=== PATIENT | female | born 1960 | race Caucasian/White ===

== ENCOUNTER 2016-12-09 23:19 | Emergency (ER) | payer MEDICARE, MEDICAID ==
--- NOTE | 2016-12-10 01:01 | EDM.PDOCBH ---
ED HPI GENERAL MEDICAL PROBLEM - General Chief Complaint: Behavioral/Psych Stated Complaint: DEPRESSED Time Seen by Provider: 12/09/16 23:20 Source of Information: Reports: Patient, EMS, RN History Limitations: Reports: No Limitations - History of Present Illness INITIAL COMMENTS - FREE TEXT/NARRATIVE: The patient told nursing staff at the [facility] she was feeling suicidal. Nursing staff then contacted Dr. Ashley Herndon who was career based intervention coordinator for further advice. Dr Herndon suggested the patient be evaluated in the ER. Upon further discussion with the patient, she is unhappy with her current living situation as she feels like a, "Prisoner." She does not like the [facility] because she is in a locked unit. She patient states she feels as though her life is a waste living at the [facility] and she would rather be . The patient stated that she would eat hearing aid batteries or hang herself with sheets. She tried to commit suicide by taking pills once as a teenager and again as a young adult. The patient has a long his of mental illness. She states that she told the nurse at the [facility] she was suicidal so she could get moved to another facility where she would have more freedom. We discussed how this behavior is actually causing healthcare professional to believe she should be in a locked facility because of complaints like this and is counter productive to the patient's goals for more freedom. The patient continued to argue with me about this not being the case. The patient states that everyone is out to get her which is how she ended up in this position in the first place. The patient refused to allow me to examine her. I called the patient's Guardian, Matty, at [facility]. I discussed the patient's living concerns with her. She assured me that they are currently trying to get the patient off of the locked unit, but are waiting for a room in a less restrictive environment so the patient may come and go as she pleases. The patient is aware of this but is unwilling to wait. The patient's guardian stated that the patient is very manipulative and is trying to get what she wants right now instead of waiting for a room to open up. She suggested we send the patient back to [facility]. I discussed this with the patient, but she refuses to believe any of the above concerning the guardian's efforts. I called the nurse, Andreia, at the [facility] and informed her of the methods which the patient told me she had planned to use to commit suicide. The nurse stated she would remove these items from the patient's vicinity so the patient would not have access to these items. The patient agreed to go back to the [facility] and be patient waiting for the room outside of the special care unit to open up instead of threatening or attempting suicide. Onset: Today, Sudden Onset Date: 12/09/16 Onset Time: 23:15 Duration: Recurring - Related Data Allergies Allergy/AdvReac Type Severity Reaction Status Date / Time amoxicillin [From Prevpac] Allergy Other Verified 12/09/16 23:32 benztropine Allergy Other Verified 12/09/16 23:32 bupropion Allergy Other Verified 12/09/16 23:32 chlorpromazine Allergy Other Verified 12/09/16 23:32 clarithromycin [From Prevpac] Allergy Other Verified 12/09/16 23:32 clozapine Allergy Other Verified 12/09/16 23:32 fluoxetine Allergy Other Verified 12/09/16 23:32 gentamicin Allergy Other Verified 12/09/16 23:32 lansoprazole [From Prevpac] Allergy Other Verified 12/09/16 23:32 lidocaine Allergy Other Verified 12/09/16 23:32 lithium Allergy Other Verified 12/09/16 23:32 olanzapine [From Zyprexa] Allergy Other Verified 12/09/16 23:32 oxcarbazepine Allergy Other Verified 12/09/16 23:32 [From Trileptal] paliperidone [From Invega] Allergy Other Verified 12/09/16 23:32 thiothixene [From Navane] Allergy Other Verified 12/09/16 23:32 ziprasidone Allergy Other Verified 12/09/16 23:32 neodecadron Allergy Other Uncoded 12/09/16 23:32 Home Meds: Home Meds Acetaminophen with Codeine [Tylenol with Codeine #3 Tablet] 1 each PO BEDTIME PRN 12/09/16 [History] Ascorbic Acid 500 mg PO DAILY 12/09/16 [History] Aspirin 81 mg PO DAILY 12/09/16 [History] Benzoyl Peroxide [Panoxyl-4] 170.1 gm TP ASDIRECTED 12/09/16 [History] Celecoxib [CeleBREX] 100 mg PO BID 12/09/16 [History] Cholecalciferol (Vitamin D3) [Vitamin D3] 1,000 unit PO DAILY 12/09/16 [History] Metoprolol Succinate [Toprol XL] 50 mg PO BEDTIME 12/09/16 [History] Multivitamin [Daily Efren] 1 each PO DAILY 12/09/16 [History] Nicotine Polacrilex [Nicorette] 2 mg BC Q2H PRN 12/09/16 [History] Pantoprazole Sodium 40 mg PO DAILY 12/09/16 [History] Pyridoxine HCl 25 mg PO DAILY 12/09/16 [History] QUEtiapine Fumarate [Seroquel Xr] 400 mg PO DAILY 12/09/16 [History] Talc/Cellulos/Chloroxy/Aldioxa [Zeasorb Powder] 71 gm TP DAILY 12/09/16 [History ] Vitamin B Complex 1 each PO DAILY 12/09/16 [History] Past Medical History HEENT History: Reports: Cataract, Other (See Below) Other HEENT History: tinnitus Cardiovascular History: Reports: Afib, Hypertension Gastrointestinal History: Reports: Chronic Constipation, GERD Musculoskeletal History: Reports: Osteoarthritis, Other (See Below) Other Musculoskeletal History: spondylosis Psychiatric History: Reports: Bipolar, Other (See Below) Other Psychiatric History: unspecified mood (affective) disorder, schizoaffective disorder Social & Family History - Tobacco Use Smoking Status *Q: Unknown Ever Smoked ED ROS GENERAL - Review of Systems Review Of Systems: ROS reveals no pertinent complaints other than HPI. ED EXAM, BEHAVIORAL HEALTH - Physical Exam Exam: See Below Exam Limited By: Uncooperative General Appearance: Alert, WD/WN, No Apparent Distress Head: Atraumatic, Normocephalic Neurological: Alert, Oriented x 3 Psychiatric: Alert, Oriented, Depressed Mood, Agitated, Uncooperative, Suicidal Thoughts, Paranoid Thoughts Skin Exam: Warm, Dry, Intact, Normal color, No rash COURSE, BEHAVIORAL HEALTH COMP - Course Vital Signs: Last Vital Signs Temp 35.5 C 12/09/16 23:20 Pulse 76 12/09/16 23:20 Resp 18 12/09/16 23:20 BP 139/70 12/09/16 23:20 Pulse Ox 96 12/09/16 23:20 Departure - Departure Time of Disposition: 12:35 (back to [facility]) Disposition: DC/Tfer to [facility] Condition: Good Clinical Impression: Depressive disorder - Discharge Information Referrals: PCPTheo [Primary Care Provider] - ED Communication - ED Communication Date/Time Date: 12/10/16 (I spoke with Andreia the nurse at [facility] to notify her of the patient's plans for suicide.) Time Called: 12:20 - Discussed Case With (1) Discussed Case With (1): Pt's POA/Guardian (Matty and I spoke concerning the patient's feelings about her current living conditions) - Discussed Case With (2) Discussed Case With (2): Admitting Provider Person/s Notified (3): Ashley Herndon (She is in agreement to send the patient back to the care center.) - Assessment/Plan Assessment:: Depression Plan: Patient to return to locked nursing unit at the [facility] with suicide precautions. Remove bedsheets and restrict access to hearing aid batteries.
== END 2016-12-10 00:35 ==
LOC: VM.ED 23:19
DX: F32.9 Major depressive disorder, single episode, unspecified (principal); I10 Essential (primary) hypertension; I48.91 Unspecified atrial fibrillation; K21.9 Gastro-esophageal reflux disease without esophagitis; M19.90 Unspecified osteoarthritis, unspecified site; Z79.899 Other long term (current) drug therapy; Z79.82 Long term (current) use of aspirin; Z88.8 Allergy status to other drugs, medicaments and biological substances; Z88.1 Allergy status to other antibiotic agents; Z88.6 Allergy status to analgesic agent
CPT/HCPCS: 99284; 99284-GF-25

== ENCOUNTER 2020-06-30 15:05 | Emergency (ER) | payer MEDICARE, MEDICAID ==
[2020-06-30] MEDS ORDERED: Sodium Chloride 0.9% 10 ML Syringe FLUSH PRN (15:47)
--- NOTE | 2020-06-30 15:55 | EDM.PDOC ---
ED HPI GENERAL MEDICAL PROBLEM - General Chief Complaint: Cardiovascular Problem Stated Complaint: HEART PALPITATIONS Time Seen by Provider: 06/30/20 15:32 Source of Information: Reports: Patient, [facility] Records - History of Present Illness INITIAL COMMENTS - FREE TEXT/NARRATIVE: Iris is a 60 y/o female was sent from the [facility] after she was reported to have had heart palpitations and an increased heart rate. Apparently this has been going on for about a month now and happens intermittently. The patient wears a digital watch that tracks her heart rate and then sends the data to an iPad and she has been looking at the data and noting that several times a day her heart rate will be in the 130s. It is mostly between 70-100. The data on her iPas does not appear that the heart rate is sustained for longer than a couple minutes and it does not really differentiate the amount of exercise she is doing. She has been diagnosed with A Fib in the past and is currently on Toprol ER 50mg qd. The patient does report some increased dizziness and SOB. She denies any chest pain. No nausea or vomiting. She does also report that hse does have a history of her psych meds causing low sodium levels and she is concerned this may be the case. Did have some dysuria yesterday. The prison nurse did talk to Dr Jonna Huffman and was advised to send her to the ER for an EKG and further evaluation. Treatments SPAR CAP BEVELER: Reports: EKG - Related Data Allergies Allergy/AdvReac Type Severity Reaction Status Date / Time amoxicillin [From Prevpac] Allergy Other Verified 12/09/16 23:32 benztropine Allergy Other Verified 12/09/16 23:32 bupropion Allergy Other Verified 12/09/16 23:32 chlorpromazine Allergy Other Verified 12/09/16 23:32 clarithromycin [From Prevpac] Allergy Other Verified 12/09/16 23:32 clozapine Allergy Other Verified 12/09/16 23:32 fluoxetine Allergy Other Verified 12/09/16 23:32 gentamicin Allergy Other Verified 12/09/16 23:32 lansoprazole [From Prevpac] Allergy Other Verified 12/09/16 23:32 lidocaine Allergy Other Verified 12/09/16 23:32 lithium Allergy Other Verified 12/09/16 23:32 olanzapine [From Zyprexa] Allergy Other Verified 12/09/16 23:32 oxcarbazepine Allergy Other Verified 12/09/16 23:32 [From Trileptal] paliperidone [From Invega] Allergy Other Verified 12/09/16 23:32 thiothixene [From Navane] Allergy Other Verified 12/09/16 23:32 ziprasidone Allergy Other Verified 12/09/16 23:32 neodecadron Allergy Other Uncoded 12/09/16 23:32 Home Meds: Home Meds Acetaminophen with Codeine [Tylenol with Codeine #3 Tablet] 1 each PO BEDTIME PRN 12/09/16 [History] Ascorbic Acid 500 mg PO DAILY 12/09/16 [History] Aspirin 81 mg PO DAILY 12/09/16 [History] Benzoyl Peroxide [Panoxyl-4] 170.1 gm TP ASDIRECTED 12/09/16 [History] Celecoxib [CeleBREX] 100 mg PO BID 12/09/16 [History] Cholecalciferol (Vitamin D3) [Vitamin D3] 1,000 unit PO DAILY 12/09/16 [History] Metoprolol Succinate [Toprol XL] 50 mg PO BEDTIME 12/09/16 [History] Multivitamin [Daily Efren] 1 each PO DAILY 12/09/16 [History] Nicotine Polacrilex [Nicorette] 2 mg BC Q2H PRN 12/09/16 [History] Pantoprazole Sodium 40 mg PO DAILY 12/09/16 [History] Pyridoxine HCl (Vitamin B6) [Pyridoxine HCl] 25 mg PO DAILY 12/09/16 [History] QUEtiapine Fumarate [Seroquel Xr] 400 mg PO DAILY 12/09/16 [History] Talc/Cellulos/Chloroxy/Aldioxa [Zeasorb Powder] 71 gm TP DAILY 12/09/16 [History] Vitamin B Complex 1 each PO DAILY 12/09/16 [History] Nitrofurantoin Monohyd/M-Cryst [Macrobid 100 mg Capsule] 100 mg PO BID 6 Days #13 capsule 06/30/20 [Rx] Past Medical History HEENT History: Reports: Cataract, Other (See Below) Other HEENT History: tinnitus Cardiovascular History: Reports: Afib, Hypertension Gastrointestinal History: Reports: Chronic Constipation, GERD Musculoskeletal History: Reports: Osteoarthritis, Other (See Below) Other Musculoskeletal History: spondylosis Psychiatric History: Reports: Bipolar, Other (See Below) Other Psychiatric History: unspecified mood (affective) disorder, schizoaffective disorder ED ROS GENERAL - Review of Systems Review Of Systems: See Below Constitutional: Reports: No Symptoms HEENT: Reports: No Symptoms Respiratory: Reports: Shortness of Breath Cardiovascular: Reports: Palpitations Endocrine: Reports: No Symptoms GI/Abdominal: Reports: No Symptoms : Reports: Dysuria Musculoskeletal: Reports: No Symptoms Skin: Reports: No Symptoms Neurological: Reports: Dizziness Psychiatric: Reports: No Symptoms Hematologic/Lymphatic: Reports: No Symptoms Immunologic: Reports: No Symptoms ED EXAM, GENERAL - Physical Exam Exam: See Below Exam Limited By: No Limitations General Appearance: Alert, WD/WN (Obese adult female.), No Apparent Distress Eye Exam: Bilateral Eye: PERRL Ears: Hearing Grossly Normal Nose: Normal Inspection, Normal Mucosa Throat/Mouth: Normal Inspection, Normal Lips, Normal Voice Head: Atraumatic, Normocephalic Neck: Supple Respiratory/Chest: No Respiratory Distress, Lungs Clear, Chest Non-Tender Cardiovascular: Normal Peripheral Pulses, Regular Rate, Rhythm, No Murmur GI/Abdominal: Normal Bowel Sounds, Soft, Non-Tender, Other (Obese) (Female) Exam: Deferred Rectal (Female) Exam: Deferred Back Exam: Normal Inspection Extremities: Normal Inspection, No Pedal Edema, Normal Capillary Refill Neurological: Alert, Oriented, CN II-XII Intact Psychiatric: Normal Affect Skin Exam: Warm, Dry, Intact, Normal Color #1 Interpretation EKG Date: 06/30/20 Time: 15:16 Rhythm: NSR Rate (Beats/Min): 81 P-Wave: Present QRS: Normal ST-T: Normal QT: Normal Comparison: NA - No Prior EKG EKG Interpretation Comments: Normal EKG Study Course - Vital Signs Text/Narrative:: 1532 The patient was seen by the SENIOR CHEMICAL ENGINEER. Labs and EKG ordered. Vitals stable and assessment negative on arrival, no meds given at this time. 1630 EKG=NSR. Labs reviewed. CMP II=175, stable for pt, Cl=97, CO2=29, BUN=26, Rv Parts And Service Director=1.3, Xucbkih=786, GFR=42; TSH=3.898; Mg=1.8; Trop I=24; UA +nitrates, WBC=20-30, Bacteria=moderate, Ketones=trace, Urine Cx pending. Case reviewed with Dr Jonna Huffman by phone. Will treat patient for UTI with po meds. Discussed lengthy allergy list and will give her Macrobid despite GFR=42. Amoxicillin noted as allergy on hospital record but not NH record. Cx and Sens pending. Will advise to push oral fluids at prison. Sodium level stable for patient according to records in [place] chart. Dr Huffman will follow up with patient and repeat her labs at the prison in the next few weeks. Written discharge instructions were given to the patient for nursing staff at the [facility] and the patient left the ER in stable condition with EMS crew to return to [facility]. Last Recorded V/S: Last Vital Signs Temp 36.6 C 06/30/20 15:15 Pulse 89 06/30/20 16:33 Resp 18 06/30/20 16:33 BP 120/71 06/30/20 16:33 Pulse Ox 94 L 06/30/20 16:33 - Orders/Labs/Meds Orders: Active Orders 24 hr Category Date Time Status EKG Documentation Completion [RC] STAT Care 06/30/20 15:47 Active CULTURE URINE [RM] Stat Lab 06/30/20 16:14 Received Sodium Chloride 0.9% [Saline Flush] Med 06/30/20 15:47 Active 10 ml FLUSH ASDIRECTED PRN Saline Lock Insert [OM.PC] Stat Oth 06/30/20 15:47 Ordered Medication Orders Sodium Chloride (Sodium Chloride 0.9% 10 Ml Syringe) 10 ml FLUSH ASDIRECTED PRN PRN Reason: Keep Vein Open Labs: Laboratory Tests 06/30/20 06/30/20 06/30/20 Range/Units 15:25 15:25 15:25 WBC 3.7 L (4.0-10.0) x10^3/uL RBC 4.58 (4.00-5.50) x10^6/uL Hgb 14.7 (12.0-16.0) g/dL Hct 42.3 (33.0-47.0) % MCV 92.4 (78.0-93.0) fL MCH 32.1 H (26.0-32.0) pg MCHC 34.8 (32.0-36.0) g/dL RDW Coeff of Marcin 14.5 (10.0-15.0) % Plt Count 220 (130-400) x10^3/uL Neut % (Auto) 48.1 L (50.0-80.0) % Lymph % (Auto) 34.4 (25.0-50.0) % Ashley % (Auto) 13.1 H (2.0-11.0) % Eos % (Auto) 4.1 H (0.0-4.0) % Baso % (Auto) 0.3 (0.2-1.2) % PT 10.5 (9.9-12.5) SEC INR 0.9 L (2.0-3.5) APTT 25.2 L (25.6-32.8) SEC Sodium 133 L (136-145) mmol/L Potassium 3.9 (3.5-5.1) mmol/L Chloride 97 L (98-107) mmol/L Carbon Dioxide 29 (21-32) mmol/L Anion Gap 10.9 (5-15) mmol/L BUN 26 H (7-18) mg/dL Creatinine 1.3 H (0.55-1.02) mg/dL Est Cr Clr Drug Dosing 44.75 mL/min Estimated GFR (MDRD) 42 Glucose 152 H (74-106) mg/dL Calcium 8.7 (8.5-10.1) mg/dL Corrected Calcium 9.66 (8.5-10.1) mg/dL Magnesium 1.8 (1.8-2.4) mg/dL Total Bilirubin 0.3 (0.2-1.0) mg/dL AST 24 (15-37) U/L ALT 36 (14-59) U/L Alkaline Phosphatase 75 (46-116) U/L Troponin I High Sens 24 (<=51) ng/L Total Protein 6.9 (6.4-8.2) g/dL Albumin 2.8 L (3.4-5.0) g/dL Globulin 4.1 Albumin/Globulin Ratio 0.68 TSH, Ultra Sensitive 3.898 H (0.358-3.74) uIU/mL Urine Color (YELLOW) Urine Appearance (CLEAR) Urine pH (5.0-8.0) Ur Specific [place] Urine Protein (NEGATIVE) mg/dL Urine Glucose (UA) (NEGATIVE) mg/dL Urine Ketones (NEGATIVE) mg/dL Urine Occult Blood (NEGATIVE) Urine Nitrite (NEGATIVE) Urine Bilirubin (NEGATIVE) Urine Urobilinogen (0.2) EU/dL Ur Leukocyte Esterase (NEGATIVE) Urine RBC (NOT SEEN) /HPF Urine WBC (NOT SEEN) /HPF Ur Squamous Epith Cells (NOT SEEN) /HPF Urine Bacteria (NOT SEEN) /HPF Urine Mucus (NOT SEEN) /LPF 06/30/20 Range/Units 16:14 WBC (4.0-10.0) x10^3/uL RBC (4.00-5.50) x10^6/uL Hgb (12.0-16.0) g/dL Hct (33.0-47.0) % MCV (78.0-93.0) fL MCH (26.0-32.0) pg MCHC (32.0-36.0) g/dL RDW Coeff of Marcin (10.0-15.0) % Plt Count (130-400) x10^3/uL Neut % (Auto) (50.0-80.0) % Lymph % (Auto) (25.0-50.0) % Ashley % (Auto) (2.0-11.0) % Eos % (Auto) (0.0-4.0) % Baso % (Auto) (0.2-1.2) % PT (9.9-12.5) SEC INR (2.0-3.5) APTT (25.6-32.8) SEC Sodium (136-145) mmol/L Potassium (3.5-5.1) mmol/L Chloride (98-107) mmol/L Carbon Dioxide (21-32) mmol/L Anion Gap (5-15) mmol/L BUN (7-18) mg/dL Creatinine (0.55-1.02) mg/dL Est Cr Clr Drug Dosing mL/min Estimated GFR (MDRD) Glucose (74-106) mg/dL Calcium (8.5-10.1) mg/dL Corrected Calcium (8.5-10.1) mg/dL Magnesium (1.8-2.4) mg/dL Total Bilirubin (0.2-1.0) mg/dL AST (15-37) U/L ALT (14-59) U/L Alkaline Phosphatase (46-116) U/L Troponin I High Sens (<=51) ng/L Total Protein (6.4-8.2) g/dL Albumin (3.4-5.0) g/dL Globulin Albumin/Globulin Ratio TSH, Ultra Sensitive (0.358-3.74) uIU/mL Urine Color Yellow (YELLOW) Urine Appearance Cloudy H (CLEAR) Urine pH 5.5 (5.0-8.0) Ur Specific [place] 1.025 Urine Protein 100 H (NEGATIVE) mg/dL Urine Glucose (UA) Negative (NEGATIVE) mg/dL Urine Ketones Trace H (NEGATIVE) mg/dL Urine Occult Blood Moderate H (NEGATIVE) Urine Nitrite Positive H (NEGATIVE) Urine Bilirubin Negative (NEGATIVE) Urine Urobilinogen 0.2 (0.2) EU/dL Ur Leukocyte Esterase Small H (NEGATIVE) Urine RBC 30-40 H (NOT SEEN) /HPF Urine WBC 20-30 H (NOT SEEN) /HPF Ur Squamous Epith Cells Rare (NOT SEEN) /HPF Urine Bacteria Moderate H (NOT SEEN) /HPF Urine Mucus Few H (NOT SEEN) /LPF Meds: Medications Generic Name Dose Route Start Last Admin Trade Name Freq PRN Reason Stop Dose Admin Sodium Chloride 10 ml 06/30/20 15:47 Sodium Chloride 0.9% 10 Ml Syringe FLUSH ASDIRECTED PRN Keep Vein Open Departure - Departure Time of Disposition: 16:45 Disposition: DC[facility]fer to [facility] [facility] Reason for Transfer *Q: Other (Resident at [facility]) Clinical Impression: Palpitations, Renal insufficiency UTI (urinary tract infection) Qualifiers: Urinary tract infection type: site unspecified Hematuria presence: without hematuria Qualified Code(s): N39.0 - Urinary tract infection, site not specified Prescriptions: Nitrofurantoin Monohyd/M-Cryst [Macrobid 100 mg Capsule] 100 mg PO BID 6 Days #13 capsule Instructions: Urinary Tract Infection, Adult Forms: ED Department Discharge Additional Instructions: -Macrobid 100mg oral BID #13 (Rx) -Push oral fluids until UTI done -Dr Jonna Huffman will order follow up labs and see this patient for follow up on prison rounds. -Return to the ER for any concerns -Resume all meds and orders at prison Sepsis Event Note (ED) - Evaluation Sepsis Screening Result: No Definite Risk - Focused Exam Vital Signs: Vital Signs Temp Pulse Resp BP Pulse Ox 06/30/20 16:33 89 18 120/71 94 L 06/30/20 15:15 36.6 C 82 12 116/91 H 94 L - My Orders Last 24 Hours: My Active Orders 06/30/20 15:47 EKG Documentation Completion [RC] STAT Sodium Chloride 0.9% [Saline Flush] 10 ml FLUSH ASDIRECTED PRN Saline Lock Insert [OM.PC] Stat 06/30/20 16:14 CULTURE URINE [RM] Stat - Assessment/Plan Last 24 Hours: My Active Orders 06/30/20 15:47 EKG Documentation Completion [RC] STAT Sodium Chloride 0.9% [Saline Flush] 10 ml FLUSH ASDIRECTED PRN Saline Lock Insert [OM.PC] Stat 06/30/20 16:14 CULTURE URINE [RM] Stat Assessment:: 1)UTI 2)Palpitations 3)Renal Insufficiency Plan: -Macrobid 100mg oral BID #13 (Rx) -Push oral fluids until UTI done -Dr Jonna Huffman will order follow up labs and see this patient for follow up on prison rounds. -Return to the ER for any concerns -Resume all meds and orders at prison
[2020-06-30 16:18] LABS: PTT,PARTIAL THROMBOPLSTIN TIME 25.2 SEC (25.6-32.8)
[2020-06-30 16:26] LABS: ANION GAP 10.9 mmol/L (5-15)
[2020-06-30] MEDS ORDERED: Nitrofurantoin Monohydrate/Macrocrystalline 100 MG Cap PO STA (16:38)
== END 2020-06-30 17:04 ==
LOC: VM.ED 15:05
DX: R00.2 Palpitations (principal); N39.0 Urinary tract infection, site not specified; N28.9 Disorder of kidney and ureter, unspecified; I48.91 Unspecified atrial fibrillation; I10 Essential (primary) hypertension; K21.9 Gastro-esophageal reflux disease without esophagitis; M19.90 Unspecified osteoarthritis, unspecified site; E66.9 Obesity, unspecified; Z88.0 Allergy status to penicillin; Z88.8 Allergy status to other drugs, medicaments and biological substances; Z88.1 Allergy status to other antibiotic agents; Z79.82 Long term (current) use of aspirin; Z79.899 Other long term (current) drug therapy; Z88.4 Allergy status to anesthetic agent
CPT/HCPCS: 80053; 81001; 83735; 84443; 84484; 85025; 85610; 85730; 87086; 87088; 87186; 93005; 93010; 99284; 99285-25; A9270-GY

== ENCOUNTER 2024-03-18 14:23 | Inpatient (IN) | payer OTHER, MEDICAID ==
[2024-03-18] MEDS ORDERED: Sodium Chloride 0.9% 10 ML Syringe FLUSH PRN (14:37)
[2024-03-18 14:58] LABS: BASOPHILS PERCENT AUTO 0.3 % (0.2-1.2); EOSINOPHILS PERCENT AUTO 0.1 % (0.0-4.0); HEMATOCRIT 39.7 % (33.0-47.0); HEMOGLOBIN 13.7 g/dL (12.0-16.0); IMMATURE GRAN ABSOLUTE AUTO 0.02 x10^3/uL (0.00-0.07); LYMPHOCYTES PERCENT AUTO 3.7 % (25.0-50.0); MEAN CORPUSCULAR HEMOGLOBIN 31.6 pg (26.0-32.0); MEAN CORPUSCULAR HGB CONC 34.5 g/dL (32.0-36.0); MEAN CORPUSCULAR VOLUME 91.7 fL (78.0-93.0); MONOCYTES ABSOLUTE AUTO 0.6 x10^3/uL (0.0-0.8); MONOCYTES PERCENT AUTO 7.6 % (2.0-11.0); PLATELET COUNT,PLT 156 x10^3/uL (130-400); RED BLOOD CELL COUNT 4.33 x10^6/uL (4.00-5.50); WHITE BLOOD CELL COUNT,WBC 7.9 x10^3/uL (4.0-10.0)
[2024-03-18 15:08] LABS: LYMPHOCYTES ABSOLUTE AUTO 0.3 x10^3/uL (1.0-4.8)
[2024-03-18 15:18] LABS: A/G RATIO 0.44; ALANINE AMINOTRANSFERASE,ALT 97 U/L (14-59); ALBUMIN 2.1 g/dL (3.4-5.0); ALKALINE PHOSPHATASE 198 U/L (46-116); ASPARTATE AMNIOTRANSFERASE,AST 117 U/L (15-37); BILIRUBIN TOTAL 2.8 mg/dL (0.2-1.0); BLOOD UREA NITROGEN,BUN 11 mg/dL (7-18); CALCIUM 8.8 mg/dL (8.5-10.1); CARBON DIOXIDE,CO2 32 mmol/L (21-32); CHLORIDE,CL 96 mmol/L (98-107); CREATININE 1.3 mg/dL (0.55-1.02); GLUCOSE RANDOM 155 mg/dL (70-99); POTASSIUM,K 4.2 mmol/L (3.5-5.1); PROTEIN TOTAL,TP 6.9 g/dL (6.4-8.2); SODIUM,NA 135 mmol/L (136-145)
[2024-03-18 15:24] LABS: ANION GAP 11.2 mmol/L (5-15); ESTIMATED GFR 46 mL/min (>=60)
[2024-03-18 15:27] LABS: LACTIC ACID 2.2 mmol/L (0.4-2.0)
[2024-03-18 15:34] LABS: C-REACTIVE PROTEIN 33.05 mg/dL (<=0.50)
[2024-03-18] MEDS: Lactated Ringers 1,000 ML IV ONE (16:03)
[2024-03-18 16:04] LABS: APPEARANCE,URINE CLOUDY (CLEAR); BILIRUBIN,URINE LARGE (NEGATIVE); COLOR,URINE AMBER (YELLOW); GLUCOSE,URINE 100 mg/dL (NEGATIVE); KETONES,URINE 15 mg/dL (NEGATIVE); LEUKOCYTE ESTERASE,URINE SMALL (NEGATIVE); NITRITE,URINE POSITIVE (NEGATIVE); OCCULT BLOOD,URINE SMALL (NEGATIVE); PROTEIN,URINE >=300 mg/dL (NEGATIVE)
[2024-03-18 16:09] LABS: RBC,URINE NOT SEEN /HPF (NOT SEEN); RENAL EPITHELIAL CELLS,URINE FEW /HPF (NOT SEEN); SQUAMOUS EPITHELIAL CELLS,UR FEW /HPF (NOT SEEN)
[2024-03-18 16:12] LABS: BACTERIA,URINE MANY /HPF (NOT SEEN); HYALINE CASTS,URINE FEW; MUCUS,URINE RARE /LPF (NOT SEEN)
[2024-03-18] MEDS: cefTRIAXone 2 GM Vial IVPUSH ONE (16:34)
[2024-03-18] MEDS ORDERED: Non-Formulary Medication 1 Each (Calcium Carbonate [Tums] 500 MG Tab.Chew) PO PRN (17:26)
[2024-03-18] MEDS ORDERED: [UNRECOGNIZED DRUG - OTHER] PO PRN (17:26)
[2024-03-18] MEDS ORDERED: NICOTINE POLACRILEX 4 MG BC PRN (17:26)
[2024-03-18] MEDS ORDERED: GUM BC PRN (17:26)
[2024-03-18] MEDS ORDERED: MAG HYDROX PO PRN (17:26)
[2024-03-18] MEDS ORDERED: CALCIUM CARB PO PRN (17:26)
[2024-03-18] MEDS ORDERED: SIMETH PO PRN (17:26)
[2024-03-18] MEDS: Lactated Ringers 1,000 ML IV SCH (17:38)
[2024-03-18] MEDS ORDERED: Calcium Carbonate 750 MG Tab.Chew PO PRN (17:45)
[2024-03-18] MEDS ORDERED: Aluminum Hydroxide/Magnesium Hydroxide/Simethicone Susp 30 ML Cup PO PRN (17:49)
[2024-03-18] MEDS ORDERED: Nicotine Polacrilex 4 MG Gum PO PRN (17:50)
[2024-03-18] MEDS ORDERED: NICOTINE POLACRILEX 4 MG PO PRN (17:51)
[2024-03-18] MEDS ORDERED: GUM PO PRN (17:51)
[2024-03-18] MEDS: Acetaminophen 325 MG Tab PO PRN (21:09)
[2024-03-19] MEDS: Pantoprazole 20 MG Tab, Delayed Release PO SCH (06:23)
[2024-03-19 07:12] LABS: A/G RATIO 0.4; ALBUMIN 1.7 g/dL (3.4-5.0); BILIRUBIN TOTAL 3.6 mg/dL (0.2-1.0); CALCIUM 8.3 mg/dL (8.5-10.1); CREATININE 1.4 mg/dL (0.55-1.02); POTASSIUM,K 3.8 mmol/L (3.5-5.1); PROTEIN TOTAL,TP 5.9 g/dL (6.4-8.2)
[2024-03-19 07:13] LABS: ANION GAP 6.8 mmol/L (5-15)
[2024-03-19 08:01] LABS: BASOPHILS PERCENT AUTO 0.3 % (0.2-1.2); EOSINOPHILS ABSOLUTE AUTO 0.1 x10^3/uL (0.0-0.5); EOSINOPHILS PERCENT AUTO 1.2 % (0.0-4.0); HEMATOCRIT 36.4 % (33.0-47.0); HEMOGLOBIN 12.1 g/dL (12.0-16.0); IMMATURE GRAN ABSOLUTE AUTO 0.02 x10^3/uL (0.00-0.07); LYMPHOCYTES ABSOLUTE AUTO 0.6 x10^3/uL (1.0-4.8); LYMPHOCYTES PERCENT AUTO 8.7 % (25.0-50.0); MEAN CORPUSCULAR HEMOGLOBIN 31.3 pg (26.0-32.0); MEAN CORPUSCULAR HGB CONC 33.2 g/dL (32.0-36.0); MEAN CORPUSCULAR VOLUME 94.1 fL (78.0-93.0); MONOCYTES ABSOLUTE AUTO 0.9 x10^3/uL (0.0-0.8); MONOCYTES PERCENT AUTO 13.4 % (2.0-11.0); NEUTROPHILS ABSOLUTE AUTO 4.9 x10^3/uL (1.8-7.7); NEUTROPHILS PERCENT AUTO 76.1 % (50.0-80.0); PLATELET COUNT,PLT 138 x10^3/uL (130-400); RED BLOOD CELL COUNT 3.87 x10^6/uL (4.00-5.50); WHITE BLOOD CELL COUNT,WBC 6.4 x10^3/uL (4.0-10.0)
[2024-03-19] MEDS ORDERED: [UNRECOGNIZED DRUG - OTHER] PO SCH (09:00)
[2024-03-19] MEDS: Enoxaparin 40 MG/0.4 ML Syringe SUBCUT SCH (09:21)
[2024-03-19] MEDS: Divalproex Sodium 500 MG Tab.ER PO SCH ×2 (09:21→20:29)
[2024-03-19] MEDS: Miconazole 2% Top Powder 45 GM Container TOP SCH (09:21)
[2024-03-19] MEDS: cefTRIAXone 1 GM Vial IVPUSH SCH (09:21)
[2024-03-19] MEDS: Metoprolol Succinate 50 MG Tab.ER PO SCH (09:22)
[2024-03-19] MEDS: Aspirin 81 MG Tab.EC PO SCH (09:22)
[2024-03-19] MEDS: Multivitamin Tab PO SCH (09:22)
[2024-03-19] MEDS: Cholecalciferol (Vitamin D3) 25 MCG Tab PO SCH (09:28)
[2024-03-19] MEDS: Vitamin B6-pyridOXINE 50 MG Tab PO SCH (10:21)
[2024-03-19] MEDS: Albuterol/Ipratropium 3.0-0.5 MG/3 ML Neb Soln NEB SCH (14:32)
[2024-03-19] MEDS: SAMIDORPHAN PO SCH ×2 (15:24→20:30)
[2024-03-19] MEDS: OLANZAPINE PO SCH ×2 (15:24→20:30)
[2024-03-20 08:03] LABS: BASOPHILS PERCENT AUTO 0.2 % (0.2-1.2); EOSINOPHILS ABSOLUTE AUTO 0.1 x10^3/uL (0.0-0.5); EOSINOPHILS PERCENT AUTO 2.7 % (0.0-4.0); HEMATOCRIT 36.6 % (33.0-47.0); HEMOGLOBIN 12.3 g/dL (12.0-16.0); IMMATURE GRAN ABSOLUTE AUTO 0.02 x10^3/uL (0.00-0.07); LYMPHOCYTES ABSOLUTE AUTO 0.6 x10^3/uL (1.0-4.8); LYMPHOCYTES PERCENT AUTO 14.3 % (25.0-50.0); MEAN CORPUSCULAR HEMOGLOBIN 31.3 pg (26.0-32.0); MEAN CORPUSCULAR HGB CONC 33.6 g/dL (32.0-36.0); MEAN CORPUSCULAR VOLUME 93.1 fL (78.0-93.0); MONOCYTES ABSOLUTE AUTO 0.6 x10^3/uL (0.0-0.8); MONOCYTES PERCENT AUTO 15.8 % (2.0-11.0); NEUTROPHILS ABSOLUTE AUTO 2.7 x10^3/uL (1.8-7.7); NEUTROPHILS PERCENT AUTO 66.5 % (50.0-80.0); PLATELET COUNT,PLT 168 x10^3/uL (130-400); RED BLOOD CELL COUNT 3.93 x10^6/uL (4.00-5.50); WHITE BLOOD CELL COUNT,WBC 4.1 x10^3/uL (4.0-10.0)
[2024-03-20 09:08] LABS: A/G RATIO 0.38; ALBUMIN 1.8 g/dL (3.4-5.0); BILIRUBIN TOTAL 2.8 mg/dL (0.2-1.0); CALCIUM 8.5 mg/dL (8.5-10.1); CREATININE 1.2 mg/dL (0.55-1.02); EST CRCL DRUG DOSING (CG) 46.66 mL/min; POTASSIUM,K 3.7 mmol/L (3.5-5.1); PROTEIN TOTAL,TP 6.6 g/dL (6.4-8.2)
[2024-03-20 09:09] LABS: ANION GAP 9.7 mmol/L (5-15)
[2024-03-20 09:36] LABS: C-REACTIVE PROTEIN 23.95 mg/dL (<=0.50)
[2024-03-20 09:39] LABS: BILIRUBIN DIRECT 2.28 mg/dL (0.00-0.20)
[2024-03-20] MEDS: Iopamidol 612 MG/ML 30 ML SDV PO ONE (12:41)
[2024-03-20] MEDS: Iopamidol 755 Mg/ML 100 ML Bottle IVPUSH ONE (12:41)
[2024-03-20] MEDS: Bisacodyl 10 MG Supp RECTAL ONE (13:01)
[2024-03-20] MEDS: Bisacodyl 10 MG Supp RECTAL PRN (15:52)
[2024-03-20] MEDS: Piperacillin/Tazobactam 4.5 GM in Sodium Chloride 0.9% 100 ML IV ONE (18:46)
[2024-03-20] MEDS: Lactated Ringers 1,000 ML IV SCH (19:56)
[2024-03-20] MEDS: Piperacillin/Tazobactam 4.5 GM in Sodium Chloride 0.9% 100 ML IV SCH (22:17)
[2024-03-21 07:02] LABS: BASOPHILS PERCENT AUTO 0.3 % (0.2-1.2); EOSINOPHILS ABSOLUTE AUTO 0.2 x10^3/uL (0.0-0.5); HEMATOCRIT 34.7 % (33.0-47.0); HEMOGLOBIN 11.8 g/dL (12.0-16.0); IMMATURE GRAN ABSOLUTE AUTO 0.01 x10^3/uL (0.00-0.07); LYMPHOCYTES ABSOLUTE AUTO 0.8 x10^3/uL (1.0-4.8); LYMPHOCYTES PERCENT AUTO 20.6 % (25.0-50.0); MEAN CORPUSCULAR HEMOGLOBIN 31.7 pg (26.0-32.0); MEAN CORPUSCULAR VOLUME 93.3 fL (78.0-93.0); MONOCYTES ABSOLUTE AUTO 0.6 x10^3/uL (0.0-0.8); MONOCYTES PERCENT AUTO 15.6 % (2.0-11.0); NEUTROPHILS ABSOLUTE AUTO 2.2 x10^3/uL (1.8-7.7); NEUTROPHILS PERCENT AUTO 58.2 % (50.0-80.0); PLATELET COUNT,PLT 172 x10^3/uL (130-400); RED BLOOD CELL COUNT 3.72 x10^6/uL (4.00-5.50); WHITE BLOOD CELL COUNT,WBC 3.8 x10^3/uL (4.0-10.0)
[2024-03-21 07:20] LABS: A/G RATIO 0.39; ALBUMIN 1.7 g/dL (3.4-5.0); CALCIUM 8.5 mg/dL (8.5-10.1); CREATININE 1.1 mg/dL (0.55-1.02); EST CRCL DRUG DOSING (CG) 50.9 mL/min; POTASSIUM,K 3.5 mmol/L (3.5-5.1); PROTEIN TOTAL,TP 6.1 g/dL (6.4-8.2)
[2024-03-21 07:21] LABS: ANION GAP 8.5 mmol/L (5-15)
[2024-03-21] MEDS: Pantoprazole 20 MG Tab, Delayed Release PO SCH (08:45)
[2024-03-21] MEDS: Potassium Chloride 10 MEQ Tab.ER PO ONE (17:02)
[2024-03-22 07:12] LABS: BASOPHILS PERCENT AUTO 0.5 % (0.2-1.2); EOSINOPHILS ABSOLUTE AUTO 0.3 x10^3/uL (0.0-0.5); HEMATOCRIT 36.1 % (33.0-47.0); HEMOGLOBIN 12.2 g/dL (12.0-16.0); IMMATURE GRAN ABSOLUTE AUTO 0.04 x10^3/uL (0.00-0.07); LYMPHOCYTES PERCENT AUTO 24.7 % (25.0-50.0); MEAN CORPUSCULAR HEMOGLOBIN 31.6 pg (26.0-32.0); MEAN CORPUSCULAR HGB CONC 33.8 g/dL (32.0-36.0); MEAN CORPUSCULAR VOLUME 93.5 fL (78.0-93.0); MONOCYTES ABSOLUTE AUTO 0.6 x10^3/uL (0.0-0.8); MONOCYTES PERCENT AUTO 15.5 % (2.0-11.0); NEUTROPHILS ABSOLUTE AUTO 2.1 x10^3/uL (1.8-7.7); NEUTROPHILS PERCENT AUTO 51.3 % (50.0-80.0); PLATELET COUNT,PLT 201 x10^3/uL (130-400); RED BLOOD CELL COUNT 3.86 x10^6/uL (4.00-5.50)
[2024-03-22 07:19] LABS: A/G RATIO 0.41; ALBUMIN 1.8 g/dL (3.4-5.0); BILIRUBIN TOTAL 1.6 mg/dL (0.2-1.0); CALCIUM 8.7 mg/dL (8.5-10.1); CREATININE 1.1 mg/dL (0.55-1.02); EST CRCL DRUG DOSING (CG) 50.9 mL/min; POTASSIUM,K 4.1 mmol/L (3.5-5.1); PROTEIN TOTAL,TP 6.2 g/dL (6.4-8.2)
[2024-03-22 07:22] LABS: ANION GAP 8.1 mmol/L (5-15)
[2024-03-22] MEDS: Enoxaparin 40 MG/0.4 ML Syringe SUBCUT SCH (09:21)
== END 2024-03-22 15:15 | disposition short-term general hospital (02) | DRG 871 ==
LOC: VM.ED 14:23 → VM.MS 16:20
PROVIDERS: ADMIT Internal Medicine; ATTEND Internal Medicine
DX: A41.51 Sepsis due to Escherichia coli [E. coli] (principal); E43 Unspecified severe protein-calorie malnutrition; J96.01 Acute respiratory failure with hypoxia; N39.0 Urinary tract infection, site not specified; E87.1 Hypo-osmolality and hyponatremia; Z68.43 Body mass index [BMI] 50.0-59.9, adult; K83.09 Other cholangitis; K81.0 Acute cholecystitis; R65.20 Severe sepsis without septic shock; I10 Essential (primary) hypertension; E66.01 Morbid (severe) obesity due to excess calories; H26.9 Unspecified cataract; M16.11 Unilateral primary osteoarthritis, right hip; K21.00 Gastro-esophageal reflux disease with esophagitis, without bleeding; F17.210 Nicotine dependence, cigarettes, uncomplicated; F20.9 Schizophrenia, unspecified; F31.9 Bipolar disorder, unspecified; I48.91 Unspecified atrial fibrillation; K59.09 Other constipation; Z88.1 Allergy status to other antibiotic agents; Z88.8 Allergy status to other drugs, medicaments and biological substances; Z79.82 Long term (current) use of aspirin; Z79.1 Long term (current) use of non-steroidal anti-inflammatories (NSAID); Z79.899 Other long term (current) drug therapy
CPT/HCPCS: 36415; 71045; 71275; 74177; 80048; 80053; 80076; 81001; 82248; 82947; 83605; 83690; 83880; 85025; 86140; 87040; 87070; 87077; 87086; 87088; 87147; 87186; 87428-QW; 94640; 94760; 97110-GP; 97162-GP; 99284; 99285; A9270-GY; J0696; J1650; J2543; J3490; J7120; J7620-GY; Q9967

== ENCOUNTER 2024-05-02 14:51 | Emergency (ER) | payer MEDICARE, MEDICAID ==
[2024-05-02] MEDS ORDERED: Sodium Chloride 0.9% 10 ML Syringe FLUSH PRN (15:03)
[2024-05-02 15:10] LABS: BASOPHILS PERCENT AUTO 0.9 % (0.2-1.2); EOSINOPHILS ABSOLUTE AUTO 0.1 x10^3/uL (0.0-0.5); EOSINOPHILS PERCENT AUTO 3.2 % (0.0-4.0); HEMATOCRIT 42.6 % (33.0-47.0); HEMOGLOBIN 14.5 g/dL (12.0-16.0); IMMATURE GRAN ABSOLUTE AUTO 0.01 x10^3/uL (0.00-0.07); LYMPHOCYTES ABSOLUTE AUTO 1.1 x10^3/uL (1.0-4.8); LYMPHOCYTES PERCENT AUTO 25.2 % (25.0-50.0); MEAN CORPUSCULAR HEMOGLOBIN 31.6 pg (26.0-32.0); MEAN CORPUSCULAR VOLUME 92.8 fL (78.0-93.0); MONOCYTES ABSOLUTE AUTO 0.9 x10^3/uL (0.0-0.8); MONOCYTES PERCENT AUTO 20.9 % (2.0-11.0); NEUTROPHILS ABSOLUTE AUTO 2.2 x10^3/uL (1.8-7.7); NEUTROPHILS PERCENT AUTO 49.6 % (50.0-80.0); PLATELET COUNT,PLT 184 x10^3/uL (130-400); RED BLOOD CELL COUNT 4.59 x10^6/uL (4.00-5.50); WHITE BLOOD CELL COUNT,WBC 4.4 x10^3/uL (4.0-10.0)
[2024-05-02 15:26] LABS: A/G RATIO 0.66; ALANINE AMINOTRANSFERASE,ALT 32 U/L (14-59); ALBUMIN 2.9 g/dL (3.4-5.0); ALKALINE PHOSPHATASE 110 U/L (46-116); ASPARTATE AMNIOTRANSFERASE,AST 30 U/L (15-37); BILIRUBIN TOTAL 0.4 mg/dL (0.2-1.0); BLOOD UREA NITROGEN,BUN 9 mg/dL (7-18); C-REACTIVE PROTEIN 3.41 mg/dL (<=0.50); CALCIUM 8.9 mg/dL (8.5-10.1); CARBON DIOXIDE,CO2 32 mmol/L (21-32); CHLORIDE,CL 97 mmol/L (98-107); CREATININE 1.2 mg/dL (0.55-1.02); GLUCOSE RANDOM 109 mg/dL (70-99); POTASSIUM,K 4.2 mmol/L (3.5-5.1); PROTEIN TOTAL,TP 7.3 g/dL (6.4-8.2); SODIUM,NA 136 mmol/L (136-145)
[2024-05-02 15:27] LABS: ANION GAP 11.2 mmol/L (5-15); ESTIMATED GFR 51 mL/min (>=60)
[2024-05-02] MEDS: cefTRIAXone 1 GM Vial IVPUSH ONE (15:52)
[2024-05-02] MEDS: Doxycycline Monohydrate 100 MG Cap PO ONE (15:52)
== END 2024-05-02 16:30 ==
LOC: VM.ED 14:51 → SUPCPDRO 14:51 → VM.ED 16:30
DX: J18.9 Pneumonia, unspecified organism (principal); I10 Essential (primary) hypertension; K21.9 Gastro-esophageal reflux disease without esophagitis; M19.90 Unspecified osteoarthritis, unspecified site; E66.9 Obesity, unspecified; Z68.43 Body mass index [BMI] 50.0-59.9, adult; Z88.0 Allergy status to penicillin; Z88.4 Allergy status to anesthetic agent; Z88.8 Allergy status to other drugs, medicaments and biological substances; Z79.82 Long term (current) use of aspirin; Z79.899 Other long term (current) drug therapy
CPT/HCPCS: 71045; 80053; 85025; 86140; 87428-QW; 96374; 99284; 99285-25; A9270-GY; J0696